=== PATIENT | female | born 1960 | race American Indian/Alaskan Native ===

== ENCOUNTER 2018-07-05 22:33 | Emergency (ER) | payer SELFPAY ==
[2018-07-06] MEDS ORDERED: PROVENTIL IH ONE (04:51)
[2018-07-06] MEDS ORDERED: DELTASONE PO ONE (04:51)
--- NOTE | 2018-07-06 05:05 | Emergency Department Report ---
ED Asthma HPI - General Chief Complaint: Adult Asthma Stated Complaint: DEBRA Time Seen by Provider: 07/06/18 04:51 Source: patient Mode of arrival: Ambulatory Limitations: No Limitations - History of Present Illness Initial Comments: Patient is a 58-year-old -[place] female who presents with cough shortness of breath 3 days states her asthma medicine is no chest pain no back pain, vomiting patient states wheezing is worse at night there is no fever or chills at this time symptoms rated at 4/10 Asthma History: childhood onset Severity: moderate Context: ran out of meds Associated Symptoms: productive cough. denies: fever, chest pain, hemoptysis, leg edema, syncope Treatments Prior to Arrival: other (none) - Related Data Current Asthma Therapy: none, inhaled bronchodilator Previous Rx's Medication Instructions Recorded Last Taken Type ALBUTEROL NEB's [Proventil 0.083% 2.5 mg IH QID PRN #25 neb 07/06/18 Unknown Rx NEBS] Azithromycin [Zithromax Z-FLY] 250 mg PO DAILY #6 tablet 07/06/18 Unknown Rx Ibuprofen 800 mg PO TID PRN #30 tablet 07/06/18 Unknown Rx predniSONE [Deltasone] 40 mg PO QDAY #10 tab 07/06/18 Unknown Rx Allergies Allergy/AdvReac Type Severity Reaction Status Date / Time No Known Allergies Allergy Unverified 07/05/18 23:07 ED Review of Systems ROS: Stated complaint: DEBRA Other details as noted in HPI Constitutional: denies: chills, fever Eyes: denies: eye pain, eye discharge, vision change ENT: congestion. denies: ear pain, throat pain Respiratory: cough, shortness of breath, wheezing Cardiovascular: denies: chest pain, palpitations, edema, syncope, paroxysmal nocturnal dyspnea Endocrine: no symptoms reported Gastrointestinal: denies: abdominal pain, nausea, diarrhea Genitourinary: denies: urgency, dysuria, discharge Musculoskeletal: denies: back pain, joint swelling, arthralgia, myalgia Skin: denies: rash, lesions Neurological: denies: headache, weakness, paresthesias Psychiatric: denies: anxiety, depression Hematological/Lymphatic: denies: easy bleeding, easy bruising ED Past Medical Hx - Past Medical History Previous Medical History?: No - Surgical History Past Surgical History?: No - Social History Smoking Status: Current Every Day Smoker Substance Use Type: None - Medications Home Medications: Home Medications Medication Instructions Recorded Confirmed Last Taken Type ALBUTEROL NEB's [Proventil 0.083% 2.5 mg IH QID PRN #25 neb 07/06/18 Unknown Rx NEBS] Azithromycin [Zithromax Z-FLY] 250 mg PO DAILY #6 tablet 07/06/18 Unknown Rx Ibuprofen 800 mg PO TID PRN #30 tablet 07/06/18 Unknown Rx predniSONE [Deltasone] 40 mg PO QDAY #10 tab 07/06/18 Unknown Rx ED Physical Exam - General Limitations: No Limitations General appearance: alert, in no apparent distress - Head Head exam: Present: atraumatic, normocephalic - Eye Eye exam: Present: normal appearance, PERRL, EOMI Pupils: Present: normal accommodation - ENT ENT exam: Present: normal exam, mucous membranes moist - Neck Neck exam: Present: normal inspection, full ROM. Absent: lymphadenopathy, thyromegaly - Respiratory Respiratory exam: Present: normal lung sounds bilaterally, wheezes, chest wall tenderness. Absent: respiratory distress - Cardiovascular Cardiovascular Exam: Present: regular rate, normal rhythm, normal heart sounds. Absent: systolic murmur, diastolic murmur, rubs, gallop - GI/Abdominal GI/Abdominal exam: Present: soft, normal bowel sounds. Absent: distended, rebound, bruit, hernia - Rectal Rectal exam: Present: deferred - Extremities Exam Extremities exam: Present: normal inspection, full ROM, normal capillary refill. Absent: tenderness, pedal edema, joint swelling, calf tenderness - Back Exam Back exam: Present: normal inspection, tenderness. Absent: muscle spasm, paraspinal tenderness, vertebral tenderness - Neurological Exam Neurological exam: Present: alert, oriented X3, CN II-XII intact, normal gait, reflexes normal. Absent: motor sensory deficit - Psychiatric Psychiatric exam: Present: normal affect, anxious - Skin Skin exam: Present: warm, dry, intact, normal color. Absent: rash ED Course Vital Signs 07/05/18 23:07 Temperature 98.2 F Pulse Rate 108 H Respiratory 20 Rate Blood Pressure 105/68 O2 Sat by Pulse 100 Oximetry ED Medical Decision Making - Radiology Data Radiology results: report reviewed, image reviewed No infiltrate no opacities - Medical Decision Making This is a bronchitis versus asthma exacerbation breathing improved to clear no wheezing after albuterol and prednisone given in ED patient has ambulated from room to maintain ED and Bactrim without increased shortness of breath O2 sat now 97% room air respiratory rate 16 BP 134/78 heart rate 97 plan DC home refill albuterol nebulizers and prednisone burst ibuprofen for pain Z PAC patient will follow with PCP in 2 to 3 days return ED should symptoms worsen patient verbalizes agreement and understanding of same to home in stable condition at this time. Critical care attestation.: If time is entered above; I have spent that time in minutes in the direct care of this critically ill patient, excluding procedure time. ED Disposition Clinical Impression: Bronchitis Asthma Qualifiers: Asthma severity: moderate Asthma persistence: unspecified Asthma complication type: uncomplicated Qualified Code(s): J45.909 - Unspecified asthma, uncomplicated Disposition: DC-01 TO HOME OR SELFCARE Is pt being admited?: No Does the pt Need Aspirin: No Condition: Good Instructions: Chronic Bronchitis (ED), Asthma (ED) Prescriptions: ALBUTEROL NEB's [Proventil 0.083% NEBS] 2.5 mg IH QID PRN #25 neb PRN Reason: Wheezing Azithromycin [Zithromax Z-FLY] 250 mg PO DAILY #6 tablet Ibuprofen 800 mg PO TID PRN #30 tablet PRN Reason: pain fever predniSONE [Deltasone] 40 mg PO QDAY #10 tab Referrals: PRIMARY CARE, [Primary Care Provider] - 3-5 Days Forms: Work/School Release Form(ED) Time of Disposition: 06:32
--- NOTE | 2018-07-06 05:16 | XRay Report ---
FINAL REPORT EXAM: XR CHEST ROUTINE 2V HISTORY: sob wheezing TECHNIQUE: PA and lateral views of the chest were submitted. FINDINGS: The heart size and mediastinum appear normal. The lungs are clear. Pleural fluid is not seen. The skeletal structures appear well maintained. IMPRESSION: No acute cardiopulmonary process.
[2018-07-06 06:40] VITALS: BP 144/72
== END 2018-07-06 06:38 | disposition home or self-care (01) ==
LOC: ED 22:33
DX: J45.909 Unspecified asthma, uncomplicated (principal); F17.200 Nicotine dependence, unspecified, uncomplicated
CPT/HCPCS: 71046; 93005; 93010; 94640; 99283; J7512